=== PATIENT | female | born 1950 | race Caucasian/White ===

== ENCOUNTER → 2016-11-08 | Outpatient (CLI) | payer MEDICARE, BC ==
[~2016-11-08] MED LIST: AMBIEN 5MG TABLE5 MG PO; BONIVA IV; CALCIUM CARB W/1 TA1 PO; CLIMARA. TOP; CLONAZEPAM PO; EPIPEN1 MG/ML MR; ESCITALOPRAM PO; FISH OIL1 IU PO; LEVBID0.375 MG PO; LEXAPRO20 MG PO; MULTIVITAMIN WI1 CAP PO; VENTOLIN0.09 MG IH; XANAX0.25 MG PO; ZOCOR PO
== END ==
LOC: COL.VAS 13:03
DX: G45.3 Amaurosis fugax (principal)

== ENCOUNTER → 2016-11-26 | Outpatient (CLI) | payer MEDICARE, BC | LOC: MC.RAD 08:58 | DX: Z12.31 Encounter for screening mammogram for malignant neoplasm of breast (principal) ==

== ENCOUNTER → 2018-01-17 | Outpatient (CLI) | payer MEDICARE, BC | LOC: MC.RAD 12-28 09:40 | DX: Z12.31 Encounter for screening mammogram for malignant neoplasm of breast (principal) ==

== ENCOUNTER → 2019-03-14 | Outpatient (CLI) | payer MEDICARE, BC ==
[~2019-03-14] MED LIST changes: -AMBIEN 5MG TABLE5 MG PO; +AMBIEN CR 12.12.5 MG PO; +ASPIRIN 81M81 MG/TA2 PO; +COLACE 100100 MG/CAP PO; +PROLIA60 MG/ML SQ; +PROVERA 2.5MG2.5 MG PO; +XANAX 1MG1 MG PO; -XANAX0.25 MG PO; +ZOLOFT 100MG100 MG PO
== END ==
LOC: MC.RAD 07:55
DX: Z12.31 Encounter for screening mammogram for malignant neoplasm of breast (principal)

== ENCOUNTER 2019-08-15 10:56 | Outpatient (CLI) | payer MEDICARE, BC ==
[~2019-08-15] VITALS: Ht 162.6 cm; Wt 66.0 kg
[~2019-08-15 10:56] MED LIST changes: +CLIMARA PRO TD; -CLIMARA. TOP
[2019-08-15 11:21] VITALS: BP 114/59; PULSE 68; TEMP 98
--- NOTE | 2019-08-15 11:24 | NUR ---
Pt angie Prolia well. Pt discharged per ambulation.
== END 2019-08-15 11:27 | disposition home or self-care (01) ==
LOC: EUO 10:56
DX: M81.0 Age-related osteoporosis without current pathological fracture (principal)
CPT/HCPCS: J0897

== ENCOUNTER 2020-02-14 15:04 | Outpatient (CLI) | payer MEDICARE, BC ==
[~2020-02-14] VITALS: Ht 162.6 cm; Wt 66.0 kg
[2020-02-14 15:48] VITALS: BP 126/73; PULSE 69; TEMP 98.2
== END 2020-02-14 15:35 | disposition home or self-care (01) ==
LOC: EUO 15:04
DX: M81.0 Age-related osteoporosis without current pathological fracture (principal)
CPT/HCPCS: J0897

== ENCOUNTER → 2020-04-04 | Outpatient (CLI) | payer MEDICARE, BC | LOC: MC.RAD 11:39 | DX: Z12.31 Encounter for screening mammogram for malignant neoplasm of breast (principal) ==

== ENCOUNTER 2020-11-27 15:56 | Outpatient (CLI) | payer MEDICARE, BC ==
[~2020-11-27] VITALS: Ht 162.6 cm; Wt 68.6 kg
[2020-11-27 16:19] VITALS: BP 109/73; PULSE 68; TEMP 98.3
== END 2020-11-27 16:25 | disposition home or self-care (01) ==
LOC: EUO
DX: M81.0 Age-related osteoporosis without current pathological fracture (principal)
CPT/HCPCS: J0897

== ENCOUNTER → 2021-04-22 | Outpatient (CLI) | payer MEDICARE, BC | LOC: MC.RAD 10:21 | DX: Z12.31 Encounter for screening mammogram for malignant neoplasm of breast (principal) ==

== ENCOUNTER → 2021-04-30 | Outpatient (CLI) | payer MEDICARE, BC | LOC: COL.RAD 14:40 | DX: Z12.2 Encounter for screening for malignant neoplasm of respiratory organs (principal); Z87.891 Personal history of nicotine dependence ==

== ENCOUNTER → 2021-06-02 | Outpatient (CLI) | payer MEDICARE, BC ==
[~2021-06-02] VITALS: Ht 162.6 cm; Wt 69.0 kg
[2021-06-02 15:21] VITALS: BP 112/70; PULSE 78; TEMP 97.9
== END ==
LOC: EUO 06-01 15:00
DX: M81.0 Age-related osteoporosis without current pathological fracture (principal)
CPT/HCPCS: J0897

== ENCOUNTER 2021-12-01 14:57 | Outpatient (CLI) | payer MEDICARE, BC ==
[~2021-12-01] VITALS: Ht 162.6 cm; Wt 73.5 kg
[~2021-12-01 14:57] MED LIST changes: +ZOCOR 40MG40 MG PO; -ZOCOR PO
[2021-12-01 15:15] VITALS: BP 113/76; PULSE 66; TEMP 97.7
[2021-12-01] MEDS ORDERED: CLIMARA 0.1 PATCH.WK TD (15:19)
== END 2021-12-01 15:28 | disposition home or self-care (01) ==
LOC: EUO 14:57
DX: M81.0 Age-related osteoporosis without current pathological fracture (principal)
CPT/HCPCS: J0897

== ENCOUNTER → 2022-04-29 | Outpatient (CLI) | payer MEDICARE, BC ==
[~2022-04-29] MED LIST changes: +CLIMARA 0.1 PATCH.WK TD
== END ==
LOC: MC.RAD 15:15
DX: Z12.31 Encounter for screening mammogram for malignant neoplasm of breast (principal)

== ENCOUNTER 2022-06-09 12:56 | Outpatient (CLI) | payer MEDICARE, BC ==
[~2022-06-09] VITALS: Ht 162.6 cm; Wt 71.0 kg
[2022-06-09 13:31] VITALS: BP 98/71; PULSE 77; TEMP 98
== END 2022-06-09 14:45 ==
LOC: EUO 12:56
DX: M81.0 Age-related osteoporosis without current pathological fracture (principal)
CPT/HCPCS: J0897